=== PATIENT | female | born 1990 | race Caucasian/White ===

== ENCOUNTER 2017-04-02 12:14 | Emergency (ER) | payer SELFPAY ==
[2017-04-02 12:23] VITALS: BP 112/81; PULSE 88; TEMP 98.2; BMI 21.9
--- NOTE | 2017-04-02 13:47 | PDOC ---
History of Present Illness - General Chief Complaint: Pain, Acute Stated Complaint: ABD PAIN (4 WKS ) Time Seen by Provider: 04/02/17 12:48 - History of Present Illness Initial Comments: 04/02/17 13:57 Ms. Collins is a 26 yo F with recent h/o spontaneous s/p 3 months who presents with abdominal pain. Pt. notes LLQ abdominal pain with 24 onset. Pain is progressive, unremitting, and sharp in nature. Pain is aggrevated with pressure and minimal relief with Tylenol. She endorses low back pain. She has normal flatulence, and denies N/V, constipation, diarrhea, blood in stool, fevers/chills, flank pain, suprapubic pain, or urinary complaints. Recently hospitalized at [facility] 3 months ago for sepsis 2/2 retained POC following spontaneous . She is a , LMP 6 weeks ago at 4 weeks GA obtained via urine preg at [facility]. She denies vaginal bleeding, discharge, dyspareurnia. She is currently not sexually active and denies h/o STI's. She reports her LMP approximately 6 weeks ago lasted 1 day with visual spotting. Prior to that, her previous menstrual period was January 17 with 4-6 days of active bleeding. She denies alcohol, tobacco, or illicit drug use. Denies h/o GI disturbances. Past History - Past Medical History Allergies/Adverse Reactions: Allergies Allergy/AdvReac Type Severity Reaction Status Date / Time Penicillins Allergy Verified 04/02/17 12:23 Home Medications: Ambulatory Orders NK [No Known Home Medication] 04/02/17 Other medical history: ECTOPIC - Surgical History Abdominal Surgery: Yes - Psycho/Social/Smoking Cessation Hx Suicidal Ideation: No Smoking History: Never smoked Hx Alcohol Use: No Drug/Substance Use Hx: No Review of Systems - Review of Systems Comments:: 04/02/17 14:31 GENERAL/CONSTITUTIONAL: No fever or chills. No weakness. HEAD, EYES, EARS, NOSE AND THROAT: No change in vision. No ear pain or discharge. No sore throat. CARDIOVASCULAR: No chest pain or shortness of breath RESPIRATORY: No cough, wheezing, or hemoptysis. GASTROINTESTINAL: + abdominal pain. No nausea, vomiting, diarrhea or constipation. GENITOURINARY: No dysuria, frequency, or change in urination. MUSCULOSKELETAL: + low back pain. No joint or muscle swelling or pain. SKIN: No rash NEUROLOGIC: No headache, vertigo, loss of consciousness, or change in strength/ sensation. ENDOCRINE: No increased thirst. No abnormal weight change HEMATOLOGIC/LYMPHATIC: No anemia, easy bleeding, or history of blood clots. ALLERGIC/IMMUNOLOGIC: No hives or skin allergy *Physical Exam - Vital Signs Last Vital Signs Temp Pulse Resp BP Pulse Ox 98.2 F 88 16 112/81 100 04/02/17 12:20 04/02/17 12:20 04/02/17 12:20 04/02/17 12:20 04/02/17 12:20 - Physical Exam Comments: 04/02/17 14:32 GENERAL: Awake, alert, and fully oriented, in no acute distress HEAD: No signs of trauma, normocephalic, atraumatic EYES: PERRLA, EOMI, sclera anicteric, conjunctiva clear ENT: Auricles normal inspection, hearing grossly normal, nares patent, oropharynx clear without exudates. Moist mucosa NECK: Normal ROM, supple, no lymphadenopathy, JVD, or masses LUNGS: No distress, speaks full sentences, clear to auscultation bilaterally HEART: Regular rate and rhythm, normal S1 and S2, no murmurs, rubs or gallops, peripheral pulses normal and equal bilaterally. ABDOMEN: TTP in LLQ, RLQ, and epigastrum. Absent midline soft. Soft, normoactive bowel sounds. No guarding,rigidity or rebound. No masses. Absent Rovsing, Troy, and Psoas sign. Absent flank and suprapubic pain. Absent HSP EXTREMITIES: Normal inspection, Normal range of motion, no edema. No clubbing or cyanosis. NEUROLOGICAL: Cranial nerves II through XII grossly intact. Normal speech, normal gait, no focal sensorimotor deficits SKIN: Warm, Dry, normal turgor, no rashes or lesions noted. ED Treatment Course - LABORATORY CBC & Chemistry Diagram: 04/02/17 13:38 04/02/17 13:38 - RADIOLOGY Radiology Studies Ordered: Category Date Time Status TRANSVAGINAL US PREG [US] Stat Ultrasound 04/02/17 13:12 Ordered Medical Decision Making - Medical Decision Making 04/02/17 14:40 Ms. Collins is a 26 yo F with recent spontaneous who presents with abdominal pain. In setting of abdominal pain in there is a higher prevalence of choleycystitis, appendicitis, and ovarian cyst. There is a low suspicion for choleycystitis as this pt. lacks s/s. She denies RUQ, pain, negative Edwards sign, and absent GI symptoms on history. Pt. denies vaginal bleeding. Low suspicion for threatened or spontaneous . Ovarian torsion/ ovarian cyst vs appendicitis in this pt. who presents with acute onset lower abdominal pain. ED course: CBC, CMP, UA HCG Quant Transvaginal US Abdominal US 04/02/17 16:01 Transvaginal U/S~ unremarkable. Pt. 4w6d. Ovaries unremarkable with adequate vascular flow. 04/02/17 16:02 UA- unremarkable CBC, CMP- unremarkable Decision to discharge *DC/Admit/Observation/Transfer Diagnosis at time of Disposition: Abdominal pain during Qualifiers: Trimester: first trimester Qualified Code(s): O26.891 - Other specified related conditions, first trimester; R10.9 - Unspecified abdominal pain - Discharge Dispostion Disposition: HOME Condition at time of disposition: Improved Admit: No - Patient Instructions Printed Discharge Instructions: DI for Abnormal Uterine Bleeding - Attestations Physician Attestion: 04/02/17 17:00 I, Dr. Chuck Montano, attest that this document has been prepared under my direction and personally reviewed by me in its entirety. I further attest, that it accurately reflects all work, treatment, procedures and medical decision -making performed by me.
[2017-04-02 13:52] LABS: BASOPHIL 0.7 % (0-2.0); EOSINOPHIL 2.5 % (0-4.5); MCH 24.7 pg (25.7-33.7); MEAN CELL VOLUME 77.3 fl (80-96); MEAN PLT VOLUME 7.7 fl (7.5-11.1); NEUTROPHILS 47.2 % (42.8-82.8); PLATELET COUNT 351 K/MM3 (134-434); RDW 16.9 % (11.6-15.6); WHITE BLOOD COUNT 6.3 K/mm3 (4.0-10.0)
[2017-04-02 14:18] LABS: ALBUMIN 4.5 g/dl (3.4-5.0); ANION GAP 6 (8-16); CALCIUM 9.6 mg/dL (8.5-10.1); CO2 29 mmol/L (21-32); CREATININE 0.6 mg/dL (0.55-1.02); GLUCOSE,RANDOM 87 mg/dL (74-106); SGOT/AST 25 U/L (15-37); SGPT/ALT 24 U/L (12-78)
[2017-04-02 14:22] LABS: ALK PHOS 40 U/L (45-117); BILIRUBIN,TOTAL 0.4 mg/dL (0.2-1.0); TOT PROT 8.4 g/dl (6.4-8.2)
[2017-04-02 14:39] LABS: URINE APPEARANCE SLCLOUDY; URINE BILIRUBIN NEGATIVE (NEGATIVE); URINE COLOR YELLOW; URINE GLUCOSE (UA) NEGATIVE (NEGATIVE); URINE KETONE TRACE (NEGATIVE); URINE LEUK ESTERASE NEGATIVE (NEGATIVE); URINE NITRITE NEGATIVE (NEGATIVE); URINE PROTEIN NEGATIVE (NEGATIVE); URINE UROBILINOGEN NEGATIVE mg/dL (0.2-1.0)
--- NOTE | 2017-04-02 14:42 | PDOC ---
Attending Attestation - Resident Resident Name: DustyNicChuck - ED Attending Attestation I have performed the following: I have examined & evaluated the patient, The case was reviewed & discussed with the resident, I agree w/resident's findings & plan, Exceptions are as noted - HPI HPI: 04/02/17 14:40 Agree with the resident's HPI as documented in the electronic medical record. - Physicial Exam PE: 04/02/17 14:40 Agree with the resident's physical examination as documented in the electronic medical record. - Medical Decision Making 04/02/17 14:40 26-year-old female last menstrual period was January 17, 2017 purportedly is via home test presents to the emergency Department with complaints of left lower quadrant pain times one day. Differential diagnosis includes but is not limited to: Ectopic , round ligament pain, corpus luteum cyst, UTI, early pyelonephritis. Plan: 1. Urine analysis 2. Pelvic ultrasound 3. Labs 4. Pain management 5. Observe and reevaluate Addendum focused bedside ultrasound (transvaginal): Reveals a thickened endometrial stripe with a small gestational sac observed (no yolk sac or pole) and no adnexal masses. The plan is to get an official ultrasound pending results of the and beta hCG. 04/02/17 16:23 Addendum: Official pelvic ultrasound reveals a small gestational sac measuring 4 weeks and 6 days consistent with the beta in the 900 range. These results are all discussed with the patient. She was advised to follow-up with her facility practice specialist in 2 days and return to the emergency department if symptoms persist, worsen, or new symptoms arise.
[2017-04-02 14:57] LABS: URINE BLOOD 2+ (NEGATIVE)
[2017-04-02 15:02] LABS: CALCIUM OXALATE CRYSTALS MODERATE /hpf (NONE SEEN); URINE MUCUS FEW; URINE RBC 13 /hpf (0-3); URINE WBC 5 /hpf (3-5)
== END 2017-04-02 17:13 | disposition home or self-care (01) ==
LOC: JER 12:14
DX: O26.891 Other specified pregnancy related conditions, first trimester (principal); R10.9 Unspecified abdominal pain; Z3A.01 Less than 8 weeks gestation of pregnancy
CPT/HCPCS: 36415; 76817-TC; 76856-TC; 80053; 81003; 81015; 84702; 85025; 99282-25

== ENCOUNTER 2017-04-06 11:05 | Emergency (ER) | payer SELFPAY ==
[2017-04-06 11:09] VITALS: TEMP 98; BMI 21.9
--- NOTE | 2017-04-06 11:52 | PDOC ---
Attending Attestation - Resident Resident Name: Obdulia Sherman - ED Attending Attestation I have performed the following: I have examined & evaluated the patient, The case was reviewed & discussed with the resident, I agree w/resident's findings & plan, Exceptions are as noted - HPI HPI: 04/06/17 11:53 at approx 5 weeks gestation presents with 3 days of lower abd cramping and vaginal spotting. No associated fever/chills, n/v. pt was here in ED for eval of abd pain w/o bleeding last week with beta in 900s. GENERAL: The patient is awake, alert, and fully oriented, Nontoxic - in no acute distress. HEAD: Normocephalic, atraumatic. EYES: extraocular movements intact, sclera anicteric, conjunctiva clear. ENT: Normal voice, Moist mucous membranes. LUNGS: Breath sounds equal, clear to auscultation bilaterally. No wheezes, no rhonchi, no rales. HEART: Regular rate and rhythm, normal S1 and S2 without murmur, rub or gallop. ABDOMEN: Soft, mild suprapubic tenderness, normoactive bowel sounds. No guarding, no rebound. No CVA tenderness EXTREMITIES: Normal range of motion, no edema. No clubbing or cyanosis. No cords, erythema, or tenderness. NEUROLOGICAL: No facial assymetry, Normal speech, moving all 4 extremities spontaneously and symmetrically PSYCH: Normal mood, normal affect. SKIN: Warm, Dry, normal turgor, threatened AB, consider ectopic will obtain beta, labs, pelvic US 04/06/17 14:53 beta elevated to 2100 US noted for intrauterine gestational sac but w/o pole will have pt fu in 2-3 days for rpeat beta and US pt feeling improved will dc with customer success associate fu - Physicial Exam PE: 04/07/17 17:32 see above - Medical Decision Making 04/07/17 17:32 see above
[2017-04-06] MEDS ORDERED: ACETAMINOPHEN 325 MG TABLET (FP) PO ONE (11:58)
[2017-04-06] MEDS ORDERED: ACETAMINOPHEN 325 MG TABLET (FP) ONE (12:18)
[2017-04-06 12:33] LABS: BASOPHIL 0.7 % (0-2.0); EOSINOPHIL 1.3 % (0-4.5); MCH 24.7 pg (25.7-33.7); MCHC 31.8 g/dl (32.0-36.0); MEAN CELL VOLUME 77.7 fl (80-96); MEAN PLT VOLUME 7.6 fl (7.5-11.1); NEUTROPHILS 56.7 % (42.8-82.8); PLATELET COUNT 336 K/MM3 (134-434); RDW 17.4 % (11.6-15.6); WHITE BLOOD COUNT 8.5 K/mm3 (4.0-10.0)
[2017-04-06 12:40] LABS: URINE APPEARANCE SLCLOUDY; URINE BILIRUBIN NEGATIVE (NEGATIVE); URINE BLOOD 1+ (NEGATIVE); URINE COLOR YELLOW; URINE GLUCOSE (UA) 1+ (NEGATIVE); URINE KETONE TRACE (NEGATIVE); URINE LEUK ESTERASE 1+ (NEGATIVE); URINE NITRITE NEGATIVE (NEGATIVE); URINE PROTEIN 1+ (NEGATIVE); URINE UROBILINOGEN NEGATIVE mg/dL (0.2-1.0)
--- NOTE | 2017-04-06 12:50 | PDOC ---
History of Present Illness - General Chief Complaint: Vaginal Bleeding Stated Complaint: 4WKS,BLEEDING Time Seen by Provider: 04/06/17 11:16 History Source: Patient Exam Limitations: No Limitations - History of Present Illness Initial Comments: This is a 26 yo (6 weeks now) with h/o septic 3 months ago with hemorrhage requiring hospital admission for a month and blood transfusion x3 units, who presents c/o vaginal spotting and cramping similar to her prior miscarriage. She notes 9/10 pain to the low back on both sides since last night, radiating diffusely to the abdomen. She has taken Advil and used a heating pad with partial relief. She characterizes the pain as sharp at times, and also at times like someone is punching her in the stomach. She notes nausea and a few episodes of vomiting over the past three days, but states this is typical of her normal morning sickness. She also notes recent room-spinning dizziness similar to the symptoms of anemia she has had in the past. She denies fever, chills, diarrhea, constipation, rash, headache, burning or pain on urination, urinary retention, or other symptoms. She was seen here in the ED for similar cramping last week, and had an unremarkable pelvic exam with normal culture swabs, unconcerning UA, US early OB showing intrauterine gestational sac at 4 weeks 6 days size. Past History - Past Medical History Allergies/Adverse Reactions: Allergies Allergy/AdvReac Type Severity Reaction Status Date / Time Penicillins Allergy Verified 04/06/17 11:09 Home Medications: Ambulatory Orders NK [No Known Home Medication] 04/02/17 Anemia: Yes (in setting of miscarriage, transfused 3 units) Other medical history: septic - Surgical History Abdominal Surgery: Yes (miscarriage/sepsis/3blood transfusions 2017) Other Surgical History: D&C for septic - Reproductive History Is Patient Now?: Yes (4wks) Spontaneous : 1 - Psycho/Social/Smoking Cessation Hx Suicidal Ideation: No Smoking History: Never smoked Information on smoking cessation initiated: No Hx Alcohol Use: No Drug/Substance Use Hx: No Substance Use Type: None Review of Systems - Review of Systems Able to Perform ROS?: Yes Is the patient limited Portuguese proficient: Yes Constitutional: No: Chills, Fever, Unexplained wgt Loss HEENTM: No: Nose Congestion, Throat Pain Respiratory: No: Cough, Shortness of Breath Cardiac (ROS): No: Chest Pain, Palpitations ABD/GI: Yes: Nausea ("morning sickness"), Vomiting ("morning sickness"), Other ( abdominal pain). No: Constipated, Diarrhea : Yes: Other (vaginal pain, spotting). No: Burning, Dysuria Musculoskeletal: Yes: Back Pain (low back, both sides). No: Neck Pain Integumentary: No: Bruising, Rash Neurological: Yes: Dizziness. No: Headache, Numbness, Tingling, Weakness Endocrine: No: Unexplained Weight Gain, Unexplained Weight Loss *Physical Exam - Vital Signs Last Vital Signs Temp Pulse Resp BP Pulse Ox 98 F 90 18 100/60 100 04/06/17 11:04/06/17 11:04/06/17 11:04/06/17 11:04/06/17 11:07 - Physical Exam General Appearance: Yes: Nourished, Appropriately Dressed, Other (anxious but very pleasant young woman who is answering questions appropriately). No: Apparent Distress HEENT: positive: EOMI, Normal Voice, Hearing Grossly Normal. negative: Pale Conjunctivae, Scleral Icterus (R), Scleral Icterus (L), Nasal Congestion Neck: positive: Trachea midline, Supple. negative: Tender, Rigid Respiratory/Chest: positive: Lungs Clear, Normal Breath Sounds. negative: Respiratory Distress, Crackles, Rhonchi, Stridor, Wheezing Cardiovascular: positive: Regular Rhythm, Regular Rate. negative: Murmur Female Pelvic Exam: positive: normal external exam, cervical os closed, adnexal tenderness (left only), other (right vaginal wall tender laceration which is about 1cm x 0.5 cm and is hemostatic without drainage, moderate amount of thin white discharge with faint pink tinge). negative: CMT Gastrointestinal/Abdominal: positive: Normal Bowel Sounds, Soft. negative: Tender, Organomegaly, Pulsatile Mass, Guarding Musculoskeletal: positive: Normal Inspection, CVA Tenderness (R), CVA Tenderness (L). negative: Decreased Range of Motion, Vertebral Tenderness Extremity: positive: Normal Capillary Refill, Normal Inspection, Normal Range of Motion. negative: Tender, Cyanosis Integumentary: positive: Normal Color, Dry, Warm. negative: Erythema, Rash, Bruising Neurologic: positive: workflow developer II-XII NML intact, Fully Oriented, Alert, Normal Mood/ Affect, Normal Response, Motor Strength 01/19 ED Treatment Course - LABORATORY CBC & Chemistry Diagram: 04/06/17 12:16 04/06/17 12:16 Medical Decision Making - Medical Decision Making This is a 26 yo female with h/o septic 3 months ago who presents with spotting and abdominal cramping in . Exam with e/o small amount of vaginal bleeding, also with right vaginal wall small laceration, also with left adnexal tenderness. Diffuse lower abdominal pain in 5.5 week old patient. Ddx includes ectopic , miscarriage, UTI, PID, appendicitis, constipation, etc. Pelvic exam without swabs will be done, also UA, CBC, CMP, quantitative beta hCG. Pelvic notable for small amount of blood mixed with thin white discharge, os closed, left adnexal tenderness. Right vaginal wall small laceration which is tender. Beta-hCG is >2100 at about 5 weeks. Formal US notes intrauterine gestational sac, size about 5 weeks, without yolk sac or pole identified. Correlating with US from four days ago which estimated this sac was 4 wks 6 days. Lab work otherwise nondirective; no anemia or obvious UTI. Patient does have an appointment scheduled with [facility] next . *DC/Admit/Observation/Transfer Diagnosis at time of Disposition: Vaginal bleeding before 22 weeks gestation, Abdominal pain affecting - Discharge Dispostion Disposition: HOME Condition at time of disposition: Stable Admit: No - Patient Instructions Printed Discharge Instructions: DI for Abdominal Pain -- Early , DI for Vaginal Bleeding During Additional Instructions: You were seen in the ED today for vaginal bleeding and abdominal/back pain in early . We found your hormone level (beta-hCG) to be 2100. We also did an ultrasound, which saw a "gestational sac" at the size of about 5 weeks . We did not see any contents in this sac yet, but it may be too early to tell whether or not this is a normal . The additional labs we did were normal (no anemia and no UTI). You should follow up with your new [facility] doctor on Sunday, 04/09, for a repeat hormone level and new patient appointment. Please also talk with the doctor about your vaginal laceration that we found on your vaginal wall during your pelvic exam. Take Tylenol for your back/abdominal pain. Take up to 650 mg Tylenol, once every 4-6 hours, as needed. Please return to the ED for any emergency concerns including profuse vaginal bleeding, severe pain, fever, or other new symptoms. - Attestations Physician Attestion: 04/06/17 15:28 I, Dr. Obdulia Sherman, attest that this document has been prepared under my direction and personally reviewed by me in its entirety. I further attest, that it accurately reflects all work, treatment, procedures and medical decision -making performed by me.
[2017-04-06 12:53] LABS: ALBUMIN 4.6 g/dl (3.4-5.0); ANION GAP 8 (8-16); BILIRUBIN,TOTAL 0.3 mg/dL (0.2-1.0); CO2 28 mmol/L (21-32); CREATININE 0.7 mg/dL (0.55-1.02); GLUCOSE,RANDOM 74 mg/dL (74-106); SGOT/AST 21 U/L (15-37); TOT PROT 8.7 g/dl (6.4-8.2)
[2017-04-06 12:55] LABS: ALK PHOS 42 U/L (45-117); SGPT/ALT 24 U/L (12-78)
[2017-04-06 13:39] LABS: URINE BACTERIA RARE /hpf (NONE SEEN); URINE MUCUS FEW; URINE RBC 4 /hpf (0-3); URINE WBC 11 /hpf (3-5)
[2017-04-06 16:02] VITALS: BP 117/60; PULSE 85
== END 2017-04-06 16:02 | disposition home or self-care (01) ==
LOC: JER 11:05
DX: O26.891 Other specified pregnancy related conditions, first trimester (principal); Z3A.01 Less than 8 weeks gestation of pregnancy; N93.9 Abnormal uterine and vaginal bleeding, unspecified; R10.9 Unspecified abdominal pain; D64.9 Anemia, unspecified
CPT/HCPCS: 36415; 76817-TC; 80053; 81003; 81015; 84702; 85025; 86850; 86900; 86901; 99282-25

== ENCOUNTER 2017-04-09 10:08 | Emergency (ER) | payer OTHER ==
[2017-04-09 10:24] VITALS: TEMP 98.2; BMI 21.0
--- NOTE | 2017-04-09 10:45 | PDOC ---
Attending Attestation - Resident Resident Name: MahajanTyler - ED Attending Attestation I have performed the following: I have examined & evaluated the patient, The case was reviewed & discussed with the resident, I agree w/resident's findings & plan, Exceptions are as noted - HPI HPI: 26 yo currently approximately 6 WGA by LMP presents with vaginal bleeding. She has a history of septic 3 months ago, so she is concerned about the bleeding. She has a first appointment with a new interventional nurse tomorrow (she just moved to [place] from [place]). She has been in the ED twice already, as her B-HCG has been going up, but no pole has been found to date. She states that she has been bleeding, but that it has been getting heavier today. Denies fever, chills. Incidentally she also notes that she dropped a towel rack on her L 3rd toe this morning, has a laceration. - Physicial Exam PE: GENERAL: Awake, alert, and fully oriented, in no acute distress HEAD: No signs of trauma EYES: PERRLA, EOMI, sclera anicteric, conjunctiva clear ENT: Auricles normal inspection, hearing grossly normal, nares patent, oropharynx clear without exudates. Moist mucosa NECK: Normal ROM, supple, no lymphadenopathy, JVD, or masses LUNGS: Breath sounds equal, clear to auscultation bilaterally. No wheezes, and no crackles HEART: Regular rate and rhythm, normal S1 and S2, no murmurs, rubs or gallops ABDOMEN: Soft, nontender, normoactive bowel sounds. No guarding, no rebound. No masses EXTREMITIES: Normal range of motion, no edema. No clubbing or cyanosis. No cords, erythema, or tenderness NEUROLOGICAL: Cranial nerves II through XII grossly intact. Normal speech, normal gait SKIN: Warm, Dry, normal turgor. +Laceration to L 3rd toe over the DIP. No active bleeding. Wound extends into the subcutaneous fat. - Medical Decision Making Patient with threatened , presents for repeat bloodwork and ultrasound, as the bleeding has been worsening. In addition, she also has laceration to the toe, will repair in ED.
[2017-04-09 11:09] LABS: BASOPHIL 0.7 % (0-2.0); EOSINOPHIL 1.6 % (0-4.5); MCH 24.9 pg (25.7-33.7); MEAN CELL VOLUME 77.7 fl (80-96); MEAN PLT VOLUME 7.8 fl (7.5-11.1); PLATELET COUNT 311 K/MM3 (134-434); RDW 17.6 % (11.6-15.6)
[2017-04-09 11:24] LABS: INR 1.09 (0.82-1.09)
[2017-04-09 11:26] LABS: ACTIVATED PTT 31.4 SECONDS (26.9-34.4)
[2017-04-09 11:43] LABS: ALBUMIN 4.4 g/dl (3.4-5.0); ANION GAP 8 (8-16); BILIRUBIN,TOTAL 0.3 mg/dL (0.2-1.0); CALCIUM 10.1 mg/dL (8.5-10.1); CO2 28 mmol/L (21-32); CREATININE 0.6 mg/dL (0.55-1.02); GLUCOSE,RANDOM 84 mg/dL (74-106); SGOT/AST 18 U/L (15-37); SGPT/ALT 26 U/L (12-78)
[2017-04-09 11:59] LABS: ALK PHOS 37 U/L (45-117)
--- NOTE | 2017-04-09 12:25 | PDOC ---
History of Present Illness - General History Source: Patient - History of Present Illness Initial Comments: 04/09/17 12:28 at approx 5 weeks gestation presents with 5 days of lower abd cramping and stefani vaginal bleeding. No associated fever/chills, n/v. pt was here in ED for eval of abd pain w/o bleeding 2 days ago with beta in 2100s and and vaginal ultrasound showing a intrauterine gestational sac but no pole. She was supposed to follow up for repeeat beta and pelvic US but came to the ED instead due to stefani bleeding. <Tyler Mahajan - Last Filed: 04/09/17 14:37> <Julisa Felipe - Last Filed: 04/10/17 16:04> - General Chief Complaint: Vaginal Bleeding Stated Complaint: BLEEDING (5 WKS ) Time Seen by Provider: 04/09/17 10:33 Past History - Past Medical History Anemia: Yes (in setting of miscarriage, transfused 3 units) - Surgical History Abdominal Surgery: Yes (miscarriage/sepsis/3blood transfusions 2017) - Reproductive History Is Patient Now?: Yes (#): 4 Para: 2 Therapeutic (s) & number: No Spontaneous : 1 - Psycho/Social/Smoking Cessation Hx Suicidal Ideation: No Smoking History: Never smoked Hx Alcohol Use: No Drug/Substance Use Hx: No Substance Use Type: None <Tyler Mahajan - Last Filed: 04/09/17 14:37> <Julisa Felipe - Last Filed: 04/10/17 16:04> - Past Medical History Allergies/Adverse Reactions: Allergies Allergy/AdvReac Type Severity Reaction Status Date / Time Penicillins Allergy Verified 04/09/17 10:20 Home Medications: Ambulatory Orders NK [No Known Home Medication] 04/02/17 Review of Systems - Review of Systems Constitutional: No: Symptoms Reported HEENTM: No: Symptoms Reported Respiratory: No: Symptoms reported Cardiac (ROS): No: Symptoms Reported ABD/GI: No: Symptoms Reported : No: Symptoms Reported Musculoskeletal: No: Symptoms Reported Integumentary: Yes: Symptoms Reported (Reports a curtain lewis fell on her toe. bleeding from lac) <Tyler Mahajan - Last Filed: 04/09/17 14:37> *Physical Exam - Vital Signs Last Vital Signs Temp Pulse Resp BP Pulse Ox 98.2 F 85 19 119/67 100 04/09/17 10:20 04/09/17 10:20 04/09/17 10:20 04/09/17 10:20 04/09/17 10:20 - Physical Exam General Appearance: Yes: Nourished, Appropriately Dressed. No: Apparent Distress HEENT: positive: EOMI, JORDAN Respiratory/Chest: positive: Lungs Clear, Normal Breath Sounds. negative: Chest Tender Cardiovascular: positive: Regular Rhythm, Regular Rate, S1, S2 Vascular Pulses: Dorsalis-Pedis (R): 2+, Doralis-Pedis (L): 2+ Female Pelvic Exam: positive: normal external exam, cervical os closed (with discharge and bleeding from os), vaginal bleeding Extremity: positive: Normal Capillary Refill (0.5cm laceration in 3rd toe of left foot) <Tyler Mahajan - Last Filed: 04/09/17 14:37> - Vital Signs Last Vital Signs Temp Pulse Resp BP Pulse Ox 98.2 F 80 18 160/64 100 04/09/17 10:20 04/09/17 15:00 04/09/17 15:00 04/09/17 15:00 04/09/17 15:00 <Julisa Felipe - Last Filed: 04/10/17 16:04> Procedures - Laceration/Wound Repair Left Distal Dorsal Toe 3rd digit Wound Length: to 2.5 cm (0.5cm) Wound Explored: clean Wound's Depth, Shape: superficial Betadine Prep: Yes Anesthesia: 1% Lidocaine Wound Repaired With: Sutures Suture Size/Type: 5:0 Number of Sutures: 2 <Tyler Mahajan - Last Filed: 04/09/17 14:37> ED Treatment Course - LABORATORY CBC & Chemistry Diagram: 04/09/17 10:42 04/09/17 10:42 - ADDITIONAL ORDERS Additional order review: Laboratory Results 04/09/17 04/09/17 04/09/17 10:54 10:42 10:42 INR 1.09 PTT (Actin FS) 31.4 Sodium 138 Potassium 4.4 Chloride 102 Carbon Dioxide 28 Anion Gap 8 BUN 11 Creatinine 0.6 Creat Clearance w eGFR > 60 Random Glucose 84 Calcium 10.1 Total Bilirubin 0.3 AST 18 ALT 26 Alkaline Phosphatase 37 L Total Protein 8.0 Albumin 4.4 Beta HCG, Quant 3276.1 Urine HCG, Qual Positive 04/09/17 10:42 RBC 4.93 MCV 77.7 L MCHC 32.0 RDW 17.6 H MPV 7.8 Neutrophils % 57.0 Lymphocytes % 33.3 Monocytes % 7.4 Eosinophils % 1.6 Basophils % 0.7 - RADIOLOGY Radiology Studies Ordered: Category Date Time Status TRANSVAGINAL US PREG [US] Stat Ultrasound 04/09/17 10:39 Ordered <Tyler Mahajan - Last Filed: 04/09/17 14:37> - LABORATORY CBC & Chemistry Diagram: 04/09/17 10:42 04/09/17 10:42 - ADDITIONAL ORDERS Additional order review: 04/09/17 10:42 RBC 4.93 MCV 77.7 L MCHC 32.0 RDW 17.6 H MPV 7.8 Neutrophils % 57.0 Lymphocytes % 33.3 Monocytes % 7.4 Eosinophils % 1.6 Basophils % 0.7 <Julisa Felipe - Last Filed: 04/10/17 16:04> Medical Decision Making - Medical Decision Making 04/09/17 12:37 26F presenting with vaginal bleeding 5w . 04/09/17 14:31 labs unchanged. Patient hcg now 3276 (from 2120 on 04/06), U/s still shows intrauterine gestational sac but persistent absence of pole. Talked to TOMAS Alvarez who advised the patient to follow up outpatient with own specialist sandro due to early stage of . Patient given results to bring to appointment. Laceration to the 3 L toe repaired with 2 interrupted sutures. 04/09/17 14:36 <Tyler Mahajan - Last Filed: 04/09/17 14:37> *DC/Admit/Observation/Transfer - Discharge Dispostion Admit: No <Tyler Mahajan - Last Filed: 04/09/17 14:37> <Julisa Felipe - Last Filed: 04/10/17 16:04> Diagnosis at time of Disposition: Threatened , Vaginal bleeding before 22 weeks gestation - Discharge Dispostion Disposition: HOME - Patient Instructions Printed Discharge Instructions: DI for Threatened Addendum entered and electronically signed by Tyler Mahajan RES 04/09/17 14:43: PLease see your primary care provider to remove sutures within 5 to 7 days
[2017-04-09 15:01] VITALS: BP 160/64; PULSE 80
== END 2017-04-09 15:01 | disposition home or self-care (01) ==
LOC: JER 10:08
PROC: 0HQNXZZ Repair Left Foot Skin, External Approach (ICD-10-PCS; principal; 2017-04-09)
DX: O26.891 Other specified pregnancy related conditions, first trimester (principal); O20.0 Threatened abortion; Z3A.01 Less than 8 weeks gestation of pregnancy; S91.115A Laceration without foreign body of left lesser toe(s) without damage to nail, initial encounter; W20.8XXA Other cause of strike by thrown, projected or falling object, initial encounter; Y92.89 Other specified places as the place of occurrence of the external cause; Y99.8 Other external cause status
CPT/HCPCS: 12001-25; 36415; 76817-TC; 80053; 84702; 84703; 85025; 85610; 85730; 99282-25

== ENCOUNTER 2017-04-13 08:10 | Emergency (ER) | payer OTHER ==
[2017-04-13 08:23] VITALS: TEMP 97.4; BMI 20.1
[2017-04-13] MEDS ORDERED: SODIUM CHLORIDE 0.9% 1000 ML INFUS.BAG IV ONE (08:47)
--- NOTE | 2017-04-13 09:03 | PDOC ---
History of Present Illness - General Chief Complaint: Vaginal Bleeding Stated Complaint: VAGINAL BLEEDING, 6 WKS Time Seen by Provider: 04/13/17 08:23 History Source: Patient Exam Limitations: No Limitations - History of Present Illness Initial Comments: 04/13/17 08:58 The patient is a 26F who is 5.5 weeks by US who presents with vaginal bleeding and abdominal pain for 1 hour. The patient was here on 04/09 and was discharged with follow up at an OB. She had uptrending BHCG count. She saw her OB yesterday who redrew labs and told the patient to present to the ED if she had bleeding more than a period and abdominal pain, which the patient is experiencing today. The patient has a history of a miscarriage 3 months ago which became septic and she required 3 transfusions. The OB states that the patient's current complaints could be related to a threatened . Today she bled through 2 pads and has passed golf-ball sized clots. Allergies: PCN Social: Does not drink/smoke/use drugs Past History - Past Medical History Allergies/Adverse Reactions: Allergies Allergy/AdvReac Type Severity Reaction Status Date / Time Penicillins Allergy Verified 04/13/17 08:23 Home Medications: Ambulatory Orders NK [No Known Home Medication] 04/02/17 Anemia: Yes (in setting of miscarriage, transfused 3 units) - Surgical History Abdominal Surgery: Yes (miscarriage/sepsis/3blood transfusions 2016) - Reproductive History (#): 4 Para: 2 Therapeutic (s) & number: No Spontaneous : 1 - Psycho/Social/Smoking Cessation Hx Anxiety: No Suicidal Ideation: No Smoking History: Never smoked Have you smoked in the past 12 months: No Information on smoking cessation initiated: No Hx Alcohol Use: No Drug/Substance Use Hx: No Substance Use Type: None Review of Systems - Review of Systems Able to Perform ROS?: Yes Is the patient limited Maltese proficient: No Constitutional: No: Chills, Fever ABD/GI: Yes: Other (Lower quadrants abdominal pain). No: Nausea, Vomiting : Yes: Other (Vaginal bleeding w/ clots). No: Dysuria, Discharge, Incontinence Hematologic/Lymphatic: Yes: Anemia, Blood Clots. No: Easy Bleeding *Physical Exam - Vital Signs Last Vital Signs Temp Pulse Resp BP Pulse Ox 97.4 F L 102 H 20 118/84 98 07/28/17 08:14 04/13/17 08:14 04/13/17 08:14 04/13/17 08:14 04/13/17 08:14 - Physical Exam General Appearance: Yes: Nourished, Appropriately Dressed. No: Apparent Distress HEENT: positive: Normal Voice Neck: positive: Trachea midline Respiratory/Chest: positive: Lungs Clear, Normal Breath Sounds. negative: Chest Tender, Respiratory Distress, Accessory Muscle Use Cardiovascular: positive: Regular Rhythm, Regular Rate, S1, S2 Female Pelvic Exam: positive: vaginal bleeding, other (Nurse Jojo is present in the room; cervix is open 3-4mm). negative: normal adnexa, discharge , adnexal tenderness Gastrointestinal/Abdominal: positive: Normal Bowel Sounds, Tender (In b/l lower quadrants), Flat, Soft. negative: Protuberent, Hernia Musculoskeletal: negative: CVA Tenderness, CVA Tenderness (R), CVA Tenderness (L ) Extremity: negative: Coldness, Swelling, Calf Tenderness Integumentary: positive: Normal Color, Dry, Warm Neurologic: positive: Fully Oriented, Alert, Normal Mood/Affect ED Treatment Course - LABORATORY CBC & Chemistry Diagram: 04/13/17 09:00 04/13/17 09:00 - RADIOLOGY Radiology Studies Ordered: Category Date Time Status TRANSVAGINAL US PREG [US] Stat Ultrasound 04/13/17 08:46 Ordered Medical Decision Making - Medical Decision Making 04/13/17 09:10 The patient is a 26F presenting with abdominal pain and vaginal bleeding x 1 hour. I have ordered labs and imaging to r/o an ectopic . I have also paged Dr. Huggins to discuss the case. 04/13/17 09:44 Pelvic exam revealed open os and a clot passing through the os. I am still waiting the page back from Dr. Huggins. 04/13/17 12:34 Ultrasound reveals evidence of an impending since 04/09. With the patient's history of a septic , she will require very close follow up. I have discussed this with the patient. I have also discussed the importance of a repeat BHCG in 48-72 hours to monitor for a decreasing or increasing count. Patient agrees and is ready for discharge. 04/13/17 12:56 Physicians office was called and personal cell was called with no response. *DC/Admit/Observation/Transfer Diagnosis at time of Disposition: Threatened - Discharge Dispostion Disposition: HOME Condition at time of disposition: Stable Admit: No - Referrals Referrals: Adrienne Huggins MD [Staff Physician] - - Patient Instructions Printed Discharge Instructions: Threatened Additional Instructions: Please return to the ER if symptoms persist, worsen, or if new symptoms arise. Please return if you have uncontrollable pain or heavy bleeding, fever or chills , extreme nausea and vomiting. Please follow up at your OB in 48-72 hours for a repeat blood test for B-HCG. If you cannot get an appointment with them, please come to the ER. - Attestations Physician Attestion: 04/13/17 12:36 Note: The patient insists on leaving the Hospital and is signing out against medical advice. Care being refused: The patient understands the risks and complications that may result from the refusal of medical care which may include and permanent disability. The patient has the mental capacity of understanding the risks of refusing care and is capable of making an informed decision. The patient was instructed to return to the Emergency Department should he/she change his/her mind regarding medical care or should his/her condition worsen. The patient signed the Against Medical Advice form.
[2017-04-13 09:32] LABS: BASOPHIL 0.2 % (0-2.0); EOSINOPHIL 1.4 % (0-4.5); MCH 25.1 pg (25.7-33.7); MCHC 32.6 g/dl (32.0-36.0); MEAN PLT VOLUME 8.5 fl (7.5-11.1); NEUTROPHILS 59.3 % (42.8-82.8); PLATELET COUNT 339 K/MM3 (134-434); WHITE BLOOD COUNT 7.3 K/mm3 (4.0-10.0)
[2017-04-13 09:58] LABS: ANION GAP 6 (8-16); BILIRUBIN,TOTAL 0.3 mg/dL (0.2-1.0); CALCIUM 9.9 mg/dL (8.5-10.1); CO2 26 mmol/L (21-32); CREATININE 0.5 mg/dL (0.55-1.02); GLUCOSE,RANDOM 84 mg/dL (74-106); SGPT/ALT 28 U/L (12-78); TOT PROT 8.1 g/dl (6.4-8.2)
[2017-04-13 10:13] LABS: ALK PHOS 39 U/L (45-117)
[2017-04-13 10:16] LABS: SGOT/AST 40 U/L (15-37)
--- NOTE | 2017-04-13 13:03 | PDOC ---
Attending Attestation - Resident Resident Name: Arelis Morrisony - ED Attending Attestation I have performed the following: I have examined & evaluated the patient, The case was reviewed & discussed with the resident, I agree w/resident's findings & plan, Exceptions are as noted - HPI HPI: 04/13/17 12:57 26 currently 5 wks by LMP about 6 weeks ago, had ultrasound showing gestational sac, no definitive IUP, here today with c/o vaginal bleeding , having blood like period with clots started 1 hr ago. no n/v mild abd cramping. not lightheaded. no mod factors. no h/o ectopic. h/o retained productcs form last miscarriage and subsequent endometritis. - Physicial Exam PE: 04/13/17 12:58 awake alert lungs clear heart RRR no m/r/g abd soft NT ND . pelvic with blood in os, clots. ox open 3 mm, no adnexal massess or CMT. no adnexal tenderness. skin warm and dry. - Medical Decision Making 04/13/17 12:59 26 yo F here 5 wks , no definitive documented IUP, plan r/o ectopic vs missed or incomlete ab, vs. complete ab, plan bhcg, labs blood type, tvus 04/13/17 13:01 pt tvus with scant blood in cervic , endometrial stripe no iup. no adnexal masses. bchg lower than prior. recommend 48 hour follow up for repeat hcg to ensure is decreasing. pt given warning signs for ectopic. given copies of all blood work. attempted to call Dr. Sims 3 times, left messages, including cell phone no return call. pt told to come to ed if any concerns receiving follow up care.
[2017-04-13 13:31] VITALS: BP 116/82; PULSE 88
== END 2017-04-13 13:32 | disposition home or self-care (01) ==
LOC: JER 08:10
DX: O20.0 Threatened abortion (principal); Z3A.01 Less than 8 weeks gestation of pregnancy
CPT/HCPCS: 36415; 76817-TC; 76856-TC; 80053; 84702; 85025; 99283-25